=== PATIENT | female | born 1990 | race Hispanic/Latino ===

== ENCOUNTER 2017-06-06 11:40 | Outpatient (CLI) | payer MEDICAID ==
[2017-06-06 12:58] VITALS: BP 109/55
== END 2017-06-06 13:10 | disposition home or self-care (01) ==
LOC: TRG 11:40
PROVIDERS: ATTEND Obstetrics & Gynecology
DX: O47.03 False labor before 37 completed weeks of gestation, third trimester (principal); Z3A.29 29 weeks gestation of pregnancy
CPT/HCPCS: 59025

== ENCOUNTER 2017-08-09 15:26 | Inpatient (IN) | payer MEDICAID ==
[2017-08-09] MEDS ORDERED: PHENERGAN PO PRN (16:09)
[2017-08-09] MEDS ORDERED: ePHEDrine SULFATE IV PRN (16:09)
[2017-08-09] MEDS ORDERED: STADOL IV PRN (16:09)
[2017-08-09] MEDS ORDERED: BRETHINE SUB-Q PRN (16:09)
[2017-08-09] MEDS ORDERED: XYLOCAINE 2% INFILTRATI ONE (16:09)
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
[2017-08-09 16:43] LABS: Hemoglobin 10.1 gm/dl (10.1-14.3); Mean Corpuscular HGB Conc 34 % (30-34); Mean Corpuscular Hemoglobin 27 pg (28-32); Mean Corpuscular Volume 81 fl (79-97); Platelet Count 128 K/mm3 (140-440); Red Blood Count 3.73 M/mm3 (3.65-5.03); Red Cell Distribution Width 15.1 % (13.2-15.2); White Blood Count 15.4 K/mm3 (4.5-11.0)
[2017-08-09] MEDS ORDERED: PITOCin/NS 20 UNIT/1000ML DRIP 20 UNITS/1,000 ML BAG IV SCH (17:00)
[2017-08-09] MEDS: LACTATED RINGERS 1,000 ML IV SCH ×2 (17:15→21:43)
[2017-08-09] MEDS ORDERED: PITOCin/NS 30 UNIT/500ML 30 UNITS/500 ML BAG IV SCH (19:00)
[2017-08-09] MEDS ORDERED: NARCAN 2 MG/2 ML IV PRN (22:46)
--- NOTE | 2017-08-09 22:46 | Anesthesia Consultation ---
Anesthesia Consult and Med Hx Date of service: 08/09/17 - Airway Anesthetic Teeth Evaluation: Good ROM Head & Neck: Adequate Mental/Hyoid Distance: Adequate Intubation Access Assessment: Probably Good - Pre-Operative Health Status ASA Pre-Surgery Classification: ASA2, Emergency Proposed Anesthetic Plan: Epidural, Spinal - Pulmonary Hx Smoking: Yes Hx Asthma: No COPD: No Hx Pneumonia: No - Cardiovascular System Hx Hypertension: No - Central Nervous System Hx Seizures: No Hx Psychiatric Problems: Yes (anxiety and depression-no meds.) - Endocrine Hx Renal Disease: No Hx End Stage Renal Disease: No Hx Hypothyroidism: No Hx Hyperthyroidism: No - Hematic Hx Anemia: No Hx Sickle Cell Disease: No - Other Systems Hx Alcohol Use: No
[2017-08-09] MEDS ORDERED: fentaNYL-BUPIV 2 MCG/ML-0.125% 200 MCG/100 ML BAG EPIDURAL SCH (23:00)
[2017-08-09] MEDS ORDERED: XYLOCAINE CARDIAC IV ONE (23:23)
--- NOTE | 2017-08-10 01:31 | Procedure Note ---
OB Delivery Note - Delivery Date of Delivery: 08/10/17 Surgeon: LEIGHANN EDDY Estimated blood loss: other (400cc) - Vaginal Delivery presentation: vertex Delivery position: OA Intrapartum events: PROM->1hr before delivery Delivery induction: none Delivery augmentation: pitocin Delivery monitor: external FHT, external uterine Route of delivery: Delivery placenta: spontaneous Episiotomy: none Delivery laceration: 1st degree Anesthesia: epidural - A at 1 minute: 8 at 5 minutes: 9 Gender: Female
[2017-08-10] MEDS ORDERED: BENADRYL PO PRN (03:26)
[2017-08-10] MEDS ORDERED: TYLENOL PO PRN (03:26)
[2017-08-10] MEDS ORDERED: TUCKS PAD TP PRN (03:26)
[2017-08-10] MEDS ORDERED: DULCOLAX PR PRN (03:26)
[2017-08-10] MEDS ORDERED: SODIUM CHLORIDE FLUSH SYRINGE 10 ML IV PRN (03:26)
[2017-08-10] MEDS ORDERED: PHENERGAN PO PRN (03:26)
[2017-08-10] MEDS ORDERED: LANSINOH TP PRN (03:26)
[2017-08-10] MEDS: MOTRIN PO SCH ×3 (03:33→18:04)
[2017-08-10] MEDS: NORCO 5/325 PO PRN (03:33)
--- NOTE | 2017-08-10 09:50 | Event Note ---
Date: 08/10/17 Stable 10 hours post sharif andres pp course
[2017-08-10] MEDS: COLACE PO SCH ×2 (10:06→21:42)
[2017-08-10] MEDS: PRENATAL VITAMIN PO SCH (10:06)
[2017-08-10 14:27] LABS: Hematocrit 26.5 % (30.3-42.9); Hemoglobin 8.6 gm/dl (10.1-14.3)
[2017-08-11] MEDS: MOTRIN PO SCH ×4 (00:23→17:58)
--- NOTE | 2017-08-11 08:31 | Progress Note ---
Assessment and Plan Patient doing well, no complaints; chon scant, VSSAF, H&H 8.6/26.5. Patient desires d/c home today. - Patient Problems (1) Spontaneous vaginal delivery Current Visit: No Status: Acute (2) Anemia due to acute blood loss Current Visit: Yes Status: Acute Plan to address problem: asymptomatic Continue PNV and increase iron rich food sources Subjective - Subjective Date of service: 08/11/17 Principal diagnosis: day #1 s/p Patient reports: appetite normal, voiding normally, pain well controlled, ambulating normally, no dizzy ambulation, no nauseated [place]: doing well, nursing well Objective - Vital Signs Latest vital signs: Vital Signs Temp Pulse Resp BP Pulse Ox 08/11/17 08:04 97.7 F 79 20 115/61 99 08/11/17 00:25 97.4 F L 79 20 101/50 99 08/10/17 17:38 97.5 F L 82 18 108/60 08/10/17 12:42 98.1 F 88 18 110/61 08/10/17 10:06 20 08/10/17 08:57 97.9 F 91 H 18 107/57 Intake and Output 08/10/17 08/11/17 08/11/17 23:59 07:59 15:59 Intake Total 840 240 Balance 840 240 Intake: Oral 840 240 Other: Total, Intake Amount 240 240 # Voids Void 1 1 - Exam Breasts: Present: normal, Cardiovascular: Present: Regular rate Lungs: Present: Clear to auscultation, Normal air movement Abdomen: Present: normal appearance, soft, normal bowel sounds Vulva: both: normal Uterus: Present: normal, firm, fundal height at umbilicus Extremities: Present: normal - Labs Labs: Abnormal lab results 08/10/17 Range/Units 13:43 Hgb 8.6 L (10.1-14.3) gm/dl Hct 26.5 L (30.3-42.9) %
--- NOTE | 2017-08-11 08:33 | Discharge Summary ---
Providers - Providers Date of Admission: 08/09/17 15:26 Date of discharge: 08/11/17 Attending physician: LEIGHANN EDDY 08/10/17 03:26 Consult to Population Health Coach [CONS] Routine Reason For Exam: assistance with , SNS Primary care physician: LEIGHANN EDDY Hospitalization Reason for admission: rupture of membranes Delivery: Episiotomy: none Laceration: 1st degree Other procedures: none complications: none Discharge diagnosis: IUP at term delivered baby: female Hospital course: uncomplicated vaginal Condition at discharge: Good Disposition: DC-01 TO HOME OR SELFCARE - Discharge Diagnoses (1) Spontaneous vaginal delivery Status: Acute Comment: rto 4 weeks PPV (2) Anemia due to acute blood loss Status: Acute Plan - Discharge Medications Prescriptions: Ferrous Sulfate [Feosol 325 MG tab] 325 mg PO BID #90 tablet Ibuprofen [Motrin 800 MG tab] 800 mg PO Q8HR PRN #30 tablet PRN Reason: Pain - Provider Discharge Summary Activity: routine, no sex for 6 weeks, no heavy lifting 4 weeks, no strenuous exercise Diet: routine Instructions: routine Additional instructions: [] Smoking cessation referral if applicable(refer to patient education folder for contact #) [] Refer to [facility] Booklet Call your doctor immediately for: * Fever > 100.5 * Heavy vaginal bleeding ( >1 pad per hour) * Severe persistent headache * Shortness of breath * Reddened, hot, painful area to leg or breast * Drainage or odor from incision. * Keep incision clean and dry at all times and follow doctor's instructions regarding bathing/showering - Follow up plan Follow up: LEIGHANN EDDY MD [Primary Care Provider] - 09/11/17 (Congratulations! please call [phone] to schedule visit in 4 weeks. Call for any questions or concerns. )
[2017-08-11] MEDS: PRENATAL VITAMIN PO SCH (10:16)
[2017-08-11] MEDS: COLACE PO SCH (10:16)
[2017-08-12] MEDS: COLACE PO SCH ×2 (00:05→10:58)
[2017-08-12] MEDS: MOTRIN PO SCH ×2 (00:06→06:26)
[2017-08-12] MEDS: PRENATAL VITAMIN PO SCH (10:58)
[2017-08-12] MEDS: NORCO 5/325 PO PRN (11:01)
[2017-08-12 17:12] VITALS: BP 152/105
== END 2017-08-12 12:30 | disposition home or self-care (01) | DRG 775 ==
LOC: LD 15:26 → OB 08-10 03:29
PROVIDERS: ADMIT Obstetrics & Gynecology; ATTEND Obstetrics & Gynecology
PROC: 10E0XZZ Delivery of Products of Conception, External Approach (ICD-10-PCS; principal; 2017-08-10)
PROC: 3E0R3BZ Introduction of Anesthetic Agent into Spinal Canal, Percutaneous Approach (ICD-10-PCS; 2017-08-10)
PROC: 00HU33Z Insertion of Infusion Device into Spinal Canal, Percutaneous Approach (ICD-10-PCS; 2017-08-10)
DX: O42.02 Full-term premature rupture of membranes, onset of labor within 24 hours of rupture (principal); Z3A.41 41 weeks gestation of pregnancy; Z37.0 Single live birth; O99.344 Other mental disorders complicating childbirth; F32.9 Major depressive disorder, single episode, unspecified; O70.0 First degree perineal laceration during delivery; F41.9 Anxiety disorder, unspecified; Z87.891 Personal history of nicotine dependence; Z88.0 Allergy status to penicillin; O90.81 Anemia of the puerperium; D62 Acute posthemorrhagic anemia
CPT/HCPCS: 36415; 85014; 85018; 85027; 86850; 86900; 86901; 99211; A6250; G0463; J0595; J2001; J2590; J7120

== ENCOUNTER 2019-07-29 08:25 | Day surgery (SDC) | payer BC, MEDICAID ==
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
[2019-07-29] MEDS ORDERED: ONDANSETRON 4 MG/2 ML INJ IV PRN (08:51)
[2019-07-29] MEDS ORDERED: MAGNESIUM OXIDE 400 MG TAB PO NR (08:52)
[2019-07-29] MEDS ORDERED: ACETAMINOPHEN 500 MG TAB PO NR (08:52)
--- NOTE | 2019-07-29 08:53 | Anesthesia Day of Surgery ---
Anesthesia Day of Surgery - Day of Surgery Patient Examined: Yes Patient H&P Reviewed: Yes Patient is NPO: Yes
--- NOTE | 2019-07-29 08:56 | Anesthesia Consultation ---
Anesthesia Consult and Med Hx Date of service: 07/29/19 - Airway Anesthetic Teeth Evaluation: Chipped ROM Head & Neck: Adequate Mental/Hyoid Distance: Adequate Mallampati Class: Class II Intubation Access Assessment: Probably Good - Pre-Operative Health Status ASA Pre-Surgery Classification: ASA2 Proposed Anesthetic Plan: General - Pulmonary Hx Smoking: Yes Hx Asthma: Yes (As a child) COPD: No Hx Pneumonia: No - Cardiovascular System Hx Hypertension: No - Central Nervous System Hx Seizures: No Hx Psychiatric Problems: Yes (Depression) - Endocrine Hx Renal Disease: No Hx End Stage Renal Disease: No Hx Hypothyroidism: No Hx Hyperthyroidism: No - Hematic Hx Anemia: No Hx Sickle Cell Disease: No - Other Systems Hx Alcohol Use: No Hx Cancer: No
[2019-07-29] MEDS ORDERED: LACTATED RINGERS 1,000 ML IV SCH (09:00)
[2019-07-29] MEDS ORDERED: MIDAZOLAM 2 MG/2 ML INJ IV NR (09:00)
[2019-07-29] MEDS ORDERED: CELECOXIB 200 MG CAP PO NR (09:00)
[2019-07-29] MEDS ORDERED: BUPIVACAINE/PF (0.5%) 5 MG/1 ML 30 ML VIAL INFILTRATI ONE ×2 (09:35→10:37)
[2019-07-29] MEDS ORDERED: HYDROmorphone 1 MG/1 ML INJ ONE (09:42)
[2019-07-29] MEDS ORDERED: ROCURONIUM 50 MG/5 ML INJ IV ONE (09:43)
[2019-07-29] MEDS ORDERED: LIDOCAINE MPF (2%) 20 MG/1 ML VIAL 5 ML ONE (09:43)
[2019-07-29] MEDS ORDERED: PROPOFOL 200 MG/20 ML VIAL IV ONE (09:43)
[2019-07-29] MEDS ORDERED: SODIUM CHLORIDE 0.9% IRR 1,000 ML BOTTLE IR ONE (10:10)
[2019-07-29] MEDS ORDERED: NEOSTIGMINE 10MG/10 ML INJ MDV ONE (10:26)
[2019-07-29] MEDS ORDERED: ONDANSETRON 4 MG/2 ML INJ ONE (10:26)
[2019-07-29] MEDS ORDERED: KETOROLAC 30 MG/1 ML INJ ONE (10:26)
[2019-07-29] MEDS ORDERED: GLYCOPYRROLATE 0.4 MG/2 ML INJ ONE (10:26)
--- NOTE | 2019-07-29 10:38 | Operative Report ---
Operative Report Operative Report: Date: 07/29/2019 Pre-operative diagnosis: Patient desires permanent sterilization Post-operative diagnosis: Same Procedure name(s): Laparoscopic bilateral salpingectomy Surgeon: Ricky Page MD Regional Dedicated Truck Driver: [] Anesthesia: General endotracheal EBL: Minimal Complications: None Findings: Patient with uterus approximately 8-10 weeks in size with normal fallopian tubes bilaterally Specimen(s): Distal portion of the right and left fallopian tubes Patient was brought in the operating room. General anesthesia was induced without difficulty. She was placed in dorsal lithotomy position. Prepped and draped in usual sterile manner. Timeout was done Her urinary bladder with was emptied with a red rubber catheter. Speculum placed in her vagina and Sargis uterine manipulator was placed for uterine manipulation. Attention was then switched to the patient's abdomen. An infra-umbilical incision was made with a scalpel. This incision was spread with a hemostat. A 5 mm trocar was placed in this incision while lifting high the abdominal wall. Intra-abdominal presence was verified directly with the laparoscope. The patient was then insufflated to approximately 3 L of CO2 gas. The patient's findings as noted above. To assess surgery incisions were made in the right and left lower quadrants. A 5 mm trocars were placed in each of these incisions under direct visualization with no evidence of internal organ damage. Each of the fallopian tube were identified by its fimbriated end. A portion approximately 1-2 cm from each cornua was grasped with the bipolar cutting instrument. The tube was transected. The mesosalpinx on the tube was then cauterized and cut until the fimbriated end was reached and fallopian tube was detached. This tube was removed through the recess report. Attention was then switched to the left fallopian tube, the same procedure was performed. Both tubal stumps and mesosalpinx were hemostatic. At this time all instruments were removed. The patient was de-insufflated. The skin incisions were closed subcuticular with 4- 0 Vicryl. Marcaine was given subcuticularly for postoperative pain relief. The patient tolerated procedure well. She was awakened in the operating room and accompanied to the recovery room in good condition.
--- NOTE | 2019-07-29 10:39 | Short Stay Summary ---
Short Stay Documentation Date of service: 07/29/19 - History Past Medical History: other (SEE HPI) Past Surgical History: Other (SEE HPI) Social history: full code (SEE HPI) - Allergies and Medications Current Medications: Allergies Penicillins Allergy (Severe, Verified 07/27/19 16:08) Vomiting Home Medications Medication Instructions Recorded Confirmed Last Taken Type Bupropion HCl [Wellbutrin XL] 300 mg PO QAM 07/27/19 07/27/19 Unknown History Active Medications Acetaminophen (Tylenol) 1,000 mg PO ONCE NR Stop: 07/29/19 13:00 Last Admin: 07/29/19 09:15 Dose: 1,000 mg Documented by: Celecoxib (Celebrex) 200 mg PO PREOP NR Stop: 07/29/19 13:00 Last Admin: 07/29/19 09:15 Dose: 200 mg Documented by: Fentanyl (Sublimaze) 50 mcg IV Q5MIN PRN PRN Reason: Pain , Severe (7-10) Stop: 07/29/19 23:00 Lactated Ringer's (Lactated Ringers) 1,000 mls @ 125 mls/hr IV DIRECT ESTEFANI Last Admin: 07/29/19 09:20 Dose: 125 mls/hr Documented by: Magnesium Oxide (Mag-Ox) 400 mg PO ONCE NR Stop: 07/29/19 14:00 Last Admin: 07/29/19 09:15 Dose: 400 mg Documented by: Midazolam HCl (Versed) 2 mg IV PREOP NR Stop: 07/29/19 23:59 Last Admin: 07/29/19 09:25 Dose: 2 mg Documented by: Ondansetron HCl (Zofran) 4 mg IV ONCE PRN PRN Reason: Nausea And Vomiting Stop: 07/29/19 13:00 - Brief post op/procedure progress note Date of procedure: 07/29/19 (see dictated operative note) - Hospital course Hospital course: Patient was admitted underwent the above him procedure without any complications. Patient will be discharged with follow-up in office in 1-2 weeks for postop check. - Disposition Condition at discharge: Good Disposition: DC-01 TO HOME OR SELFCARE - Discharge Diagnoses (1) Encounter for sterilization Status: Acute Short Stay Discharge Plan Activity: advance as tolerated Diet: regular Wound: open to air Follow up with: ZAN MCDOWELL MD [Primary Care Provider] - 7 Days
[2019-07-29] MEDS ORDERED: fentaNYL 100 MCG/2 ML INJ ONE (10:46)
[2019-07-29] MEDS: fentaNYL 100 MCG/2 ML INJ IV PRN ×2 (10:54→11:18)
--- NOTE | 2019-07-29 11:15 | Post Anesthesia Evaluation ---
- Post Anesthesia Evaluation Patient Participated: Yes Airway Patent: Yes Stable Respiratory Function: Yes Nausea/Vomiting: No Temp > 96.8F: Yes Pain Manageable: Yes Adequeate Hydration: Yes Anesthesia Complications: No Block Receding Appropriately: Not Applicable Patient on Ventilator: No
[2019-07-29 12:00] VITALS: BP 106/64
== END 2019-07-29 12:06 | disposition home or self-care (01) ==
LOC: OR 08:25
PROVIDERS: ATTEND Obstetrics & Gynecology
DX: Z30.2 Encounter for sterilization (principal); J45.909 Unspecified asthma, uncomplicated; F17.210 Nicotine dependence, cigarettes, uncomplicated; D62 Acute posthemorrhagic anemia; K21.9 Gastro-esophageal reflux disease without esophagitis; M19.90 Unspecified osteoarthritis, unspecified site; F32.9 Major depressive disorder, single episode, unspecified; Z80.3 Family history of malignant neoplasm of breast; Z88.0 Allergy status to penicillin; Z79.899 Other long term (current) drug therapy; Z98.890 Other specified postprocedural states
CPT/HCPCS: 58661; 81025; 88302; J1170; J1885; J2250; J2405; J2704; J2710; J3010; J7120